=== PATIENT | female | born 1970 | race Caucasian/White ===

== ENCOUNTER 2019-11-21 15:39 | Emergency (ER) | payer SELFPAY ==
[~2019-11-21] VITALS: Ht 165.1 cm; Wt 54.4 kg
[2019-11-21 16:19] VITALS: BP 138/82
--- NOTE | 2019-11-21 16:21 | NUR ---
ED Nurse Note:pt. came with right lower back skin rash/cellulitis from med injections, no fever no drainage
--- NOTE | 2019-11-21 16:28 | Emergency Room Report ---
History of Present Illness General Chief Complaint: Skin Rash/Abscess Source: Patient Present Illness HPI Patient got injections of substance to dissolve fat the right flank area on Sunday. This was done by friend who is an RN. The sites are becoming painful and red. She was seen in urgent care and advised to come to the emergency department. She is felt feverish and has taken Tylenol for the pain and fever. This is helped somewhat. When she is sitting on the areas the pain is 9/10. She took a dose of Levaquin yesterday and also started on Augmentin these were medication she had leftover. She last received tetanus vaccination as a child. No chills, sore throat, chest pain, palpitations, nausea, vomiting, diarrhea, dysuria, abdominal pain, shortness of breath, joint pain, depression, anxiety, visual changes, dizziness, headache. No major medical problems. COVID-19 risk:Travel to affect: No Allergies: Coded Allergies: No Known Allergies (Unverified , 11/21/19) Patient History Past Medical History: see triage record Past Surgical History: appy Social History: Denies: smoking Social History Narrative Patient driving to [employer] in [facility] Last Menstrual Period: 09/29 Reviewed Nursing Documentation: PMH: Agreed; PSxH: Agreed Nursing Documentation-PMH Past Medical History: No Stated History Review of Systems All Other Systems: negative except mentioned in HPI Physical Exam Vital Signs Date Time Temp Pulse Resp B/P (MAP) Pulse Ox O2 Delivery O2 Flow Rate FiO2 11/21/19 15:57 98.2 88 14 138/82 (100) 95 Room Air Sp02 EP Interpretation: reviewed, normal General Appearance: well appearing, no apparent distress, GCS 15, non-toxic Head: normocephalic Eyes: bilateral eye normal inspection, bilateral eye PERRL, bilateral eye EOMI ENT: moist mucus membranes Neck: supple Respiratory: lungs clear, normal breath sounds Cardiovascular #1: regular rate, rhythm Cardiovascular #2: 2+ radial (R) Gastrointestinal: normal inspection, normal bowel sounds, non tender, no mass, non-distended Genitourinary: no CVA tenderness Musculoskeletal: back normal - Aside from skin changes at, normal range of motion, gait/station normal Neurologic: alert, oriented x3, grossly normal, normal inspection Psychiatric: mood/affect normal Skin: warm/dry, other - 2 lesions left lower back 2 x 4 cm with induration but no fluctuance. Erythematous Medical Decision Making Diagnostic Impression: Primary Impression: Cellulitis Qualified Codes: L03.312 - Cellulitis of back [any part except buttock] ER Course Patient presents with painful swelling of the left lower back. Differential includes cellulitis versus abscess amongst others. There is no fluctuance at this time. Laboratory evaluation is indicated. In addition analgesia as well as antibiotics are indicated. Tetanus indicated. Patient is nontoxic at this time. Labs with leukocytosis. CMP with minimally elevated glucose. Patient still with pain. Dilaudid given. Patient improved with treatment. Discussed treatment plan with patient. Patient stable for outpatient observation and treatment. Laboratory Tests Test 11/21/19 16:30 White Blood Count 12.6 K/UL (4.8-10.8) H Red Blood Count 4.60 M/UL (4.20-5.40) Hemoglobin 12.7 G/DL (12.0-16.0) Hematocrit 39.2 % (37.0-47.0) Mean Corpuscular Volume 85 FL (80-99) Mean Corpuscular Hemoglobin 27.7 PG (27.0-31.0) Mean Corpuscular Hemoglobin Concent 32.5 G/DL (32.0-36.0) Red Cell Distribution Width 13.3 % (11.6-14.8) Platelet Count 289 K/UL (150-450) Mean Platelet Volume 7.5 FL (6.5-10.1) Neutrophils (%) (Auto) 81.3 % (45.0-75.0) H Lymphocytes (%) (Auto) 13.1 % (20.0-45.0) L Monocytes (%) (Auto) 4.4 % (1.0-10.0) Eosinophils (%) (Auto) 0.6 % (0.0-3.0) Basophils (%) (Auto) 0.6 % (0.0-2.0) Urine Color Pale yellow Urine Appearance Clear Urine pH 7 (4.5-8.0) Urine Specific [place] 1.010 (1.005-1.035) Urine Protein Negative (NEGATIVE) Urine Glucose (UA) Negative (NEGATIVE) Urine Ketones Negative (NEGATIVE) Urine Blood Negative (NEGATIVE) Urine Nitrite Negative (NEGATIVE) Urine Bilirubin Negative (NEGATIVE) Urine Urobilinogen Normal MG/DL (0.0-1.0) Urine Leukocyte Esterase Negative (NEGATIVE) Urine RBC 0 /HPF (0 - 2) Urine WBC 0-2 /HPF (0 - 2) Urine Squamous Epithelial Cells Few /LPF (NONE/OCC) Urine Bacteria Occasional /HPF (NONE) Urine HCG, Qualitative Negative (NEGATIVE) Sodium Level 137 MMOL/L (136-145) Potassium Level 4.0 MMOL/L (3.5-5.1) Chloride Level 102 MMOL/L (98-107) Carbon Dioxide Level 27 MMOL/L (21-32) Anion Gap 8 mmol/L (5-15) Blood Urea Nitrogen 15 mg/dL (7-18) Creatinine 0.8 MG/DL (0.55-1.30) Estimate Glomerular Filtration Rate > 60 mL/min (>60) Glucose Level 156 MG/DL (74-106) H Calcium Level 9.4 MG/DL (8.5-10.1) Total Bilirubin 0.1 MG/DL (0.2-1.0) L Aspartate Amino Transferase (AST) 26 U/L (15-37) Alanine Aminotransferase (ALT) 31 U/L (12-78) Alkaline Phosphatase 88 U/L (46-116) Total Protein 8.2 G/DL (6.4-8.2) Albumin 3.8 G/DL (3.4-5.0) Globulin 4.4 g/dL Albumin/Globulin Ratio 0.9 (1.0-2.7) L Urine Opiates Screen Negative (NEGATIVE) Urine Barbiturates Screen Negative (NEGATIVE) Phencyclidine (PCP) Screen Negative (NEGATIVE) Urine Amphetamines Screen Negative (NEGATIVE) Urine Benzodiazepines Screen Negative (NEGATIVE) Urine Cocaine Screen Negative (NEGATIVE) Urine Marijuana (THC) Screen Negative (NEGATIVE) Last Vital Signs Date Time Temp Pulse Resp B/P (MAP) Pulse Ox O2 Delivery O2 Flow Rate FiO2 11/21/19 18:44 98.2 14 138/82 97 Room Air 11/21/19 15:57 88 Status: improved Disposition: HOME, SELF-CARE Condition: Improved Scripts Bacitracin (Bacitracin) 28.4 Gm Oint...g. 1 APPLIC TOPIC BID, #20 GM Prov: Nain Espinoza MD 11/21/19 Ibuprofen* (MOTRIN*) 600 Mg Tablet 600 MG ORAL Q6H PRN for For Pain, #16 TAB Prov: Nain Espinoza MD 11/21/19 Hydrocodone Bit/Acetaminophen 5-325* (NORCO 5-325 TABLET*) 1 Each Tablet 1 TAB ORAL Q6H PRN for FOR PAIN, #8 TAB 0 Refills Prov: Nain Espinoza MD 11/21/19 Cephalexin* (KEFLEX*) 500 Mg Capsule 500 MG ORAL EVERY 6 HOURS, #28 CAP Prov: Nain Espinoza MD 11/21/19 Trimethoprim/Sulfamethoxazole 160/800* (BACTRIM DS TABLET*) 1 Each Tablet 1 TAB ORAL Q12H, #14 TAB 0 Refills Prov: Nain Espinoza MD 11/21/19 Nain Espinoza MD Nov 21, 2019 16:28
[2019-11-21] MEDS ORDERED: Vancomycin 1 GM in NS 275 ML IVPB ONE (16:30)
[2019-11-21] MEDS ORDERED: cefTRIAXone 1 GM in NS 55 ML IVPB ONE (16:30)
[2019-11-21] MEDS ORDERED: Tetanus/Diptheria/Pertussis IM ONE (16:30)
[2019-11-21] MEDS ORDERED: Ketorolac 30mg Inj IV ONE (16:30)
[2019-11-21] MEDS ORDERED: Bacitracin Oint UD TOPIC ONE (16:30)
[2019-11-21 16:53] LABS: APPEARANCE,URINE CLEAR; BILIRUBIN, URINE NEGATIVE (NEGATIVE); COLOR,URINE PALE YELLOW; GLUCOSE, URINE (UA) NEGATIVE (NEGATIVE); KETONES,URINE NEGATIVE (NEGATIVE); LEUKOCYTE ESTERASE ,URINE NEGATIVE (NEGATIVE); NITRITE,URINE NEGATIVE (NEGATIVE); PH,URINE 7 (4.5-8.0); PROTEIN,URINE NEGATIVE (NEGATIVE); UROBILINOGEN,URINE NORMAL MG/DL (0.0-1.0)
[2019-11-21 17:05] LABS: BASOPHILS % (AUTO) 0.6 % (0.0-2.0); EOSINOPHILS % (AUTO) 0.6 % (0.0-3.0); HEMATOCRIT 39.2 % (37.0-47.0); HEMOGLOBIN 12.7 G/DL (12.0-16.0); LYMPHOCYTES % (AUTO) 13.1 % (20.0-45.0); MEAN CORPUSCULAR VOLUME 85 FL (80-99); MONOCYTES % (AUTO) 4.4 % (1.0-10.0); NEUTROPHILS % (AUTO) 81.3 % (45.0-75.0); PLATELET COUNT 289 K/UL (150-450); RED CELL DISTRIBUTION WIDTH 13.3 % (11.6-14.8); WHITE BLOOD COUNT 12.6 K/UL (4.8-10.8)
[2019-11-21 17:12] LABS: ANION GAP 8 mmol/L (5-15); BLOOD UREA NITROGEN 15 mg/dL (7-18); CALCIUM 9.4 MG/DL (8.5-10.1); CARBON DIOXIDE 27 MMOL/L (21-32); CHLORIDE 102 MMOL/L (98-107); CREATININE 0.8 MG/DL (0.55-1.30); SODIUM 137 MMOL/L (136-145)
[2019-11-21] MEDS ORDERED: Hydromorphone 0.5mg/0.5ml inj IVP ONE (17:15)
[2019-11-21 17:17] LABS: ALANINE AMINOTRANSFERASE 31 U/L (12-78); ALBUMIN 3.8 G/DL (3.4-5.0); ALBUMIN/GLOBULIN RATIO 0.9 (1.0-2.7); ALKALINE PHOSPHATASE 88 U/L (46-116); ASPARTATE AMINO TRANSFERASE 26 U/L (15-37); BILIRUBIN,TOTAL 0.1 MG/DL (0.2-1.0)
[2019-11-21] MEDS ORDERED: IBUPROFEN600 MG ORAL (18:42)
[2019-11-21] MEDS ORDERED: BACTRIM DS TAB1 EAC1 ORAL (18:42)
[2019-11-21] MEDS ORDERED: BACITRACIN15 GM TOPIC (18:42)
[2019-11-21] MEDS ORDERED: CEPHALEXIN500 MG ORAL (18:42)
[2019-11-21] MEDS ORDERED: NORCO 5-325 TA1 EAC1 ORAL (18:42)
[2019-11-21 18:44] VITALS: BP 138/82
--- NOTE | 2019-11-21 18:45 | NUR ---
ER DISCHARGE NOTE: Patient is cleared to be discharged per ERMD, pt is aox4, on room air, with stable vital signs. pt was given dc and prescription instructions, pt was able to verbalize understanding, pt id band and iv site removed without complications. pt is able to ambulate with steady gait. pt took all belongings.
== END 2019-11-21 18:45 | disposition home or self-care (01) ==
LOC: EEVIPCON 15:39 → EMR 17:15
DX: L03.312 Cellulitis of back [any part except buttock and flank] (principal); Z23 Encounter for immunization
CPT/HCPCS: 36415; 80053; 80307; 81001; 81025; 85025; 90471; 90715; 96365; 96367; 96375; 99284; J0696; J1170; J1885; J2405; J3370; J7050